=== PATIENT | male | born 1950 | race Caucasian/White ===

== ENCOUNTER 2017-02-04 12:38 | Emergency (ER) | payer BC ==
--- NOTE | ~2017-02-04 | ER ---
PATIENT'S NAME: KENIA MALLOY [facility] AGE: 66 Y [address] ROOM: [place] [id number] LOCATION: [facility] ADMIT DATE: 02/04/2017 ER/Outpatient Report DISCHARGE DATE: 02/04/2017 FAMILY PHYSICIAN: PHYSICIAN, NO ATTENDING PHYSICIAN: Cameron Arriaga TIME OF ARRIVAL: 12:25. TIME OF EXAM: 12:27. CHIEF COMPLAINT: Right eye injury. HISTORY OF PRESENT ILLNESS: The patient states he was spraying weed about 20 minutes prior to arrival when he had some of the spray get into his right eye. States he was wearing a face shield at that time. He did rinse his right eye, but not for the 15-20 minutes as recommended on the labels of the spray. He states his eye has a burning-type discomfort to it, but denies any change in his vision. Denies any other injury with incident. ALLERGIES: NO KNOWN ALLERGIES. CURRENT MEDICATIONS: On his chart reviewed by me. PAST MEDICAL HISTORY: Heart disease, hypertension, and gout. PAST SURGICAL HISTORY: Include cardiac stents around 2011. SOCIAL HISTORY: Denies use of tobacco, drugs, or alcohol. Presents to the ER accompanied by his . REVIEW OF SYSTEMS: All negative other than those mentioned in the HPI. PHYSICAL EXAMINATION: VITAL SIGNS: He weighed 74 kg, blood pressure is 112/81, pulse of 56, respirations 16, temperature of 97.6 orally, and O2 saturation was 93% on room PATIENT'S NAME: KENIA MALLOY [facility] AGE: 66 Y [address] ROOM: [place] [address] LOCATION: [facility] ADMIT DATE: 02/04/2017 ER/Outpatient Report DISCHARGE DATE: 02/04/2017 FAMILY PHYSICIAN: PHYSICIAN, NO ATTENDING PHYSICIAN: Cameron Arriaga air. GENERAL: He is awake, alert, and oriented x4. SKIN: [place], warm, and dry. RESPIRATIONS: Even and nonlabored. Pupils are equal and reactive to light. Extraocular movement is intact. The right conjunctiva is reddened. Nasal is clear. Oropharynx is clear. NECK: Supple. No lymphadenopathy. LUNGS: Lung sounds are clear throughout. HEART: Regular rate and rhythm. Alcaine drop was applied to the right eye and Joseph lens was inserted and eye was irrigated with liter of normal saline fluids. The patient tolerated the irrigation very well. Following the irrigation, visual acuity was checked. His right eye was 20/70 and left eye was 20/50, both eyes are 20/50, that is uncorrected. States he does normally wear glasses and that is what his vision normally is. Poison Control was contacted regarding the patient. They state that those chemicals cause primarily just eye irritation and that he does not need any special type treatments. Alcaine drops were reapplied for some general discomfort. IMPRESSION: Chemical conjunctivitis due to weed spray. PLAN: Home, rest. Cautioned him on driving, wear sunglasses, try not to rub his eyes. If his eye is not feeling better within 24 hours, he needs to follow up with an eye doctor. He verbalized understanding. KERRY MEEK APRN FOR MD STEPHANIE TAMEZ/liborio /[id number] d: 02/04/17 2325 t: 02/05/17 1553, OUTPATIENT REPORT
== END 2017-02-04 13:49 | disposition disaster alternative care site (69) ==
LOC: GMED 12:38
DX: H10.211 Acute toxic conjunctivitis, right eye (principal); I11.9 Hypertensive heart disease without heart failure; I51.9 Heart disease, unspecified; M10.9 Gout, unspecified; Z79.82 Long term (current) use of aspirin; Z79.899 Other long term (current) drug therapy; Z98.890 Other specified postprocedural states
CPT/HCPCS: J7030